=== PATIENT | female | born 1990 | race Caucasian/White ===

== ENCOUNTER 2024-07-31 19:11 | Emergency (ER) | payer BC, OTHER ==
[~2024-07-31] VITALS: Ht 160 cm; Wt 54.4 kg
[2024-07-31] MEDS ORDERED: CLON0.5T PO (20:12)
[2024-07-31] MEDS ORDERED: LAMO25TA5 PO (20:12)
[2024-07-31 21:21] LABS: BASOPHILS % (AUTO) 0.4 % (0.0-2.0); EOSINOPHILS # (AUTO) 0.1 K/uL (0.0-0.7); HEMATOCRIT 35.8 % (31.2-41.9); HEMOGLOBIN 11.9 g/dL (10.9-14.3); LYMPHOCYTES # (AUTO) 2.2 K/uL (0.8-4.8); LYMPHOCYTES % (AUTO) 20.6 % (20.5-51.5); MEAN CORPUSCULAR HEMOGLOBIN 30.3 uug (24.7-32.8); MEAN CORPUSCULAR HGB CONC 33 g/dL (32.3-35.6); MONOCYTES # (AUTO) 0.5 K/uL (0.1-1.30); MONOCYTES % (AUTO) 4.4 % (0.0-11.0); NEUTROPHILS # (AUTO) 7.8 K/uL (1.8-8.9); NEUTROPHILS % (AUTO) 73.6 % (38.5-71.5); PLATELET COUNT (AUTO) 294 K/uL (179-408); RED BLOOD CELL COUNT(AUTO) 3.93 MIL/uL (3.63-4.92); RED CELL DISTRIBUTION WIDTH 13.7 % (12.3-17.7); WHITE BLOOD COUNT (AUTO) 10.6 K/uL (3.8-11.8)
[2024-07-31] MEDS ORDERED: LIDOCAINE HCL 1% 20 ML VIAL ONE (21:23)
[2024-07-31 21:24] LABS: DIFFERENTIAL COMMENT 1
[2024-07-31 21:29] LABS: CALCIUM 8.8 mg/dL (8.5-10.1); CARBON DIOXIDE 21 mmol/L (21-32); CHLORIDE 106 mmol/L (98-107); CREATININE 0.9 mg/dL (0.6-1.3); GLUCOSE 59 mg/dL (74-106); POTASSIUM 3.7 mmol/L (3.5-5.1); SODIUM SERUM 145 mmol/L (136-145); UREA NITROGEN, BLOOD 16 mg/dL (7-18)
[2024-07-31] MEDS ORDERED: ALPRAZOLAM 0.25 MG TABLET PO ONE (21:30)
[2024-07-31 21:33] LABS: ETHANOL 209 MG/DL (0-10)
[2024-07-31 21:35] LABS: ALANINE AMINOTRANSFERASE 15 U/L (14-59); ALKALINE PHOSPHATASE 43 U/L (50-136); ASPARTATE AMINOTRANSFERASE 25 U/L (15-37); BILIRUBIN,DIRECT 0.1 mg/dL (0.0-0.2); BILIRUBIN,TOTAL 0.2 mg/dL (0.2-1.0); TOTAL PROTEIN, SERUM 7.3 g/dL (6.4-8.2)
[2024-07-31 21:38] LABS: ACETAMINOPHEN < 2.0 ug/mL (10-30)
[2024-07-31] MEDS ORDERED: CLONAZEPAM 0.5 MG TABLET ONE (21:57)
[2024-07-31] MEDS: CLONAZEPAM 0.5 MG TABLET PO ONE (21:59)
[2024-08-01] MEDS: LIDOCAINE HCL 1% 20 ML VIAL IJ ONE (00:30)
[2024-08-01] MEDS ORDERED: NEOMY/BACITRA/POLYMYXIN B OINT UD PACKET TP ONE (00:50)
[2024-08-01] MEDS: NEOMY/BACITRA/POLYMYXIN B OINT UD PACKET TP ONE (00:55)
[2024-08-01 00:58] VITALS: BP 105/55; O2SAT 98
== END 2024-08-01 00:59 | disposition home or self-care (01) ==
LOC: ER 19:29
DX: S51.812A Laceration without foreign body of left forearm, initial encounter (principal); F32.9 Major depressive disorder, single episode, unspecified; F41.9 Anxiety disorder, unspecified; R10.2 Pelvic and perineal pain; Z79.899 Other long term (current) drug therapy; Z88.8 Allergy status to other drugs, medicaments and biological substances; W26.8XXA Contact with other sharp object(s), not elsewhere classified, initial encounter; Y93.89 Activity, other specified; Y92.89 Other specified places as the place of occurrence of the external cause; Y99.8 Other external cause status
CPT/HCPCS: 12001; 80048; 80076; 80299; 80307; 80320; 84702; 85025; 99283; J3490; 36415; A4606; A4663; G0480